=== PATIENT | female | born 1980 | race Caucasian/White ===

== ENCOUNTER 2021-09-06 13:12 | Emergency (ER) | payer BC, OTHER ==
--- OUTSIDE RECORDS SUMMARY | 2021-09-06 13:15 | XMS REPORT | Continuity of Care Document ---
:1980 Author Organization [facility] t Address [address] [place] [address] Care Team Providers Name Role Phone Pcp, Does Not Have A Primary Care Physician Nurse, Db Urgent Care Attending Clinician Unavailable Ori SHAW Attending Clinician ORI Attending Clinician Unavailable Doctor Unassigned, Name Attending Clinician Unavailable DINESH_ROBB_Phillip_Angela Attending Clinician Unavailable Gerald Fisher Attending Clinician [phone] Abigail JEAN Attending Clinician DINESH_ROBB_Phillip_Angela Admitting Clinician Unavailable Payers Payer Name Policy Type Policy Number Effective Date Expiration Date [place] [id number] 2018 00:00:00 [place] Problems This patient has no known problems. Allergies, Adverse Reactions, Alerts Allergy Allergy Status Severity Reaction(s) Onset Inactive Treating Comm ents Source Name Type Date Date Clinician No Known DA Active U [facility] 7-18 [facility] [address] [place] [address] NO KNOWN Drug Active Univers ALLERGIE Class [facility] [place] Social History Social Habit Start Date Stop Date Quantity Comments Source Exposure to 2021-08-27 2021-09-06 Not sure [facility] SARS-CoV-2 (event) 00:00:00 09:48:00 Medica l Branch Sex Assigned At [birth year] [facility] 00:00:00 00:00:00 Medical Branch Smoking Status Start Date Stop Date Source Unknown if ever smoked [facility] Medications Ordered Filled Start Stop Current Ordering Indication Dosage Frequency Signature Comments Components Source Medication Medication Date Date Medication? Clinician (SIG) Name Name Mary 2020-05- No [id number] Take 2 Mandy n 250 MG 0-01 10-07 tablets by Seyb old oral Tablet 00:00: 04:59 mouth on 00 :00 day 1 then 1 tablet by mouth daily for 4 days thereafter . Vital Signs Vital Name Observation Time Observation Value Comments Source Systolic blood 2021-09-06 14:59:00 157 mm[Hg] [facility]iver [facility] of [facility] Diastolic blood 2021-09-06 14:59:00 99 mm[facility]Hg[facility] rate 2021-09-06 14:59:00 93 /min [facility] Body temperature 2021-09-06 14:59:00 36.11 [facility] Respiratory rate 2021-09-06 14:59:00 18 /min [facility] Body height 2021-09-06 14:59:00 160 cm [facility] Body weight 2021-09-06 14:59:00 59.194 kg [facility] BMI 2021-09-06 14:59:00 23.12 kg/m2 [facility] Oxygen saturation in 2021-09-06 14:59:00 100 /min [facility] Arterial blood by [facility] Pulse oximetry [place] Procedures Procedure Date / Time Performed Performing Clinician [facility] e ASSIGNMENT OF BENEFITS 2021-09-06 14:44:15 Doctor Unassigned, No [facility] Encounters Start End Encounter Admission Attending Care Care Encounter Source Date/Time Date/Time Type Type Clinicians Facility Department ID 2021-09-06 2021-09-06 Nurse [facility] [id number] Univers 10:30:00 10:50:00 Visit [facility] [id number] itpadma sanchez [facility] [id number] Mario as ECTOR?BLEA [id number] Pr [address] MEDICAL OFFICE BUILDING 2021-09-06 2021-09-06 Outpatient [facility] [id number] Univers 10:30:00 10:30:00 [id number] ity [facility] 2021-09-06 2021-09-06 Outpatient R ORI [facility] [id number] Univers 10:30:00 10:30:00 KENISHA ity [facility] 2021-09-06 2021-09-06 Outpatient R ORI [facility] [id number] Univers 10:00:00 10:00:00 KENISHA ity [facility] 2021-09-06 2021-09-06 Letter Doctor [place] [id number] Univers 00:00:00 00:00:00 (Out) Unassigned, JD [id number] ity of [facility] [id number] Mario as [id number] [facility] 044 [place] 2021-09-06 2021-09-06 Orders Doctor [place] [id number] Univers 00:00:00 00:00:00 Only Unassigned, JD [id number] ity of [facility] [id number] Mario as [id number] [facility] 009 [place] 2021-09-06 2021-09-06 Letter Doctor [place] [id number] Univers 00:00:00 00:00:00 (Out) Unassigned, JD [id number] ity of [facility] [id number] Mario as [id number] [facility] 044 [place] 2021-06-23 2021-06-23 Outpatient GC_[facility]AOM[facility]_ PRIV PRIV [id number] [facility] 04:25:00 04:25:00 Janett [id number] Medic al 2021-06-22 2021-06-22 Outpatient GC_SWHAOM[facility]_ PRIV PRIV [id number] [facility] 10:06:00 10:06:00 Janett [id number] Medic al 2021-06-22 2021-06-22 Outpatient Phillip, PRIV PRIV [id number] 00:00:00 00:00:00 Kris [id number] Gerald [id number] 2021-06-21 2021-06-21 Outpatient GC_SWOMC_ PRIV PRIV [id number] [facility] 01:05:00 01:05:00 Janett [id number] Medic al 2021-02-11 2021-02-11 [facility] [id number] Mandy 14:32:09 14:52:34 ne Volodymyr AT [id number] Se shalom OROZCO [id number] [facility] [id number] 2019-07-04 2019-07-04 Outpatient GC_SWHAOMC_ PRIV PRIV [id number] [facility] 04:52:00 04:52:00 Janett [id number] Medic al Results Test Description Test Time Test Comments Results Result Comments Source HGB HCT 2018-11-20 07:48:00 Test Item Value Reference Range Interpretation Comme nts HEMOGLOBIN (test code = HGB) 7.9 g/dL 10.7-13.9 L HEMATOCRIT (test code = HCT) 27.2 % 32.1-42.1 L AG HEPATITIS B [id number] 14:05:00 Test Item Value Reference Range Interpretation Comments AG HEPATITIS B SURFACE (test code NONREACTIVE NONREACTIVE = HBSAG) IS CONSENT FORM SIGNED FOR HIV TESTING? YAB HEPATITIS C [id number] 14:05:00 Test Item Value Reference Range Interpretation Comments AB HEPATITIS C (test code = NONREACTIVE NONREACTIVE HCVAB) SIGNAL TO CUTOFF (test code = 0.09 <0.80 N CUTOFF) IS CONSENT FORM SIGNED FOR HIV TESTING? YAB [id number] 14:05:00 Test Item Value Reference Range Interpretation Comments AB TREPONEMA (test code = TREPAB) NONREACTIVE NONREACTIVE IS CONSENT FORM SIGNED FOR HIV TESTING? YAB HIV 1 14:05:00 Test Item Value Reference Range Interpretation Comments AB HIV 1 2 (test NONREACTIVE NONREACTIVE Done by [facility] code = [id number]) 4th Gen HIV Ag/Ab Combo Screen IS CONSENT FORM SIGNED FOR HIV TESTING? YCBC W/AUTO [id number] 04:40:00 Test Item Value Reference Range Interpretation Comments WHITE BLOOD CELL (test code = WBC) 14.8 K/mm3 6.6-12.1 H RED BLOOD CELL (test code = RBC) 3.87 M/mm3 3.45-5.01 N HEMOGLOBIN (test code = HGB) 8.9 g/dL 10.7-13.9 L HEMATOCRIT (test code = HCT) 30.1 % 32.1-42.1 L MEAN CELL VOLUME (test code = MCV) 78 fL 84.1-94.8 L MEAN CELL HGB (test code = MCH) 23.0 pg 27-35 L MEAN CELL HGB CONCETRATION (test 29.6 gm/dL 32.2-34.1 L code = MCHC) RED CELL DISTRIBUTION WIDTH (test 16.8 % 12.4-16.5 H code = RDW) PLATELET COUNT (test code = PLT) 237 K/mm3 133-385 N IMMATURE PLATELET FRACTION (test 0.0 % 0.0-10.8 N code = IPF) MEAN PLATELET VOLUME (test code = 12.4 fl 9.1-12.7 N MPV) NEUTROPHIL % (test code = NT%) 73.3 % 56.5-79.4 N LYMPHOCYTE % (test code = LY%) 16.5 % 14.3-34.3 N MONOCYTE % (test code = MO%) 7.4 % 5.1-10.4 N EOSINOPHIL % (test code = EO%) 0.5 % 0.1-3.0 N BASOPHIL % (test code = BA%) 0.5 % 0.1-1.0 N NEUTROPHIL # (test code = NT#) 10.9 K/mm3 LYMPHOCYTE # (test code = LY#) 2.5 K/mm3 MONOCYTE # (test code = MO#) 1.1 K/mm3 EOSINOPHIL # (test code = EO#) 0.08 K/mm3 BASOPHIL # (test code = BA#) 0.1 K/mm3 RBC MORPHOLOGY REQUIRED (test code NORMAL NORMAL = RBCM) PLATELET MORPHOLOGY REQUIRED (test NORMAL NORMAL code = PLTMR)
[2021-09-06] MEDS ORDERED: ONDANSETRON 4 MG/2 ML VIAL ONE (13:37)
[2021-09-06] MEDS ORDERED: MORPHINE 4 MG/ML SYR ONE (13:47)
[2021-09-06 13:49] LABS: Urine Blood Negative (Negative); Urine Glucose Negative (Negative); Urine Protein Negative (Negative); Urine pH 5.5 (5.0-7.0)
[2021-09-06 14:05] LABS: Absolute Lymphocytes (CBC) 1.9 K/uL (0.7-4.9); Hematocrit 38.2 % (36.0-45.0); Lymphocytes % 23.4 % (15.3-44.8); RBC Red Blood Cell Count 4.88 M/uL (3.86-4.86)
[2021-09-06 14:08] LABS: Urine Bacteria <20 /HPF (<20); Urine RBC <5 /HPF (NONE SEEN)
[2021-09-06 14:18] LABS: ALT/SGPT 21 U/L (12-78); AST/SGOT 23 U/L (15-37); Albumin 4.2 g/dL (3.4-5.0); Alkaline Phosphatase 58 U/L (45-117); BUN Blood Urea Nitrogen 8 mg/dL (7-18); Bicarbonate 28 mmol/L (21-32); Bilirubin Total 0.3 mg/dL (0.2-1.0); Glucose Level 109 mg/dL (74-106); Lipase 176 U/L (73-393); Potassium 3.9 mmol/L (3.5-5.1); Protein, Total 7.6 g/dL (6.4-8.2); Sodium Level 139 mmol/L (136-145)
--- NOTE | 2021-09-06 14:48 | RAD REPORT ---
EXAM DESCRIPTION: CTAbdomen Pelvis W Contrast - 09/06/2021 2:39 pm CLINICAL HISTORY: Bilateral flank pain COMPARISON: No comparisons TECHNIQUE: CT of the abdomen and pelvis was performed. All CT scans are performed using dose optimization technique as appropriate and may include automated exposure control or mA/KV adjustment according to patient size. FINDINGS: Lower chest: No acute abnormality. Liver: No acute abnormality or suspicious lesions. Biliary: No biliary ductal dilatation. Stomach: No significant focal abnormality. Duodenum: No significant focal abnormality. Pancreas: No significant abnormality. Spleen: No significant abnormality. Adrenal: No suspicious lesions. Kidney/ureter: No hydronephrosis. No renal calculi. Retroperitoneum: No retroperitoneal adenopathy. Vascular: No aneurysm. Bowel: Normal appendix.. Moderate colonic stool burden. Peritoneum: Trace pelvic free fluid which is likely physiologic. Bladder: Grossly unremarkable. Reproductive: No adnexal masses. Bones: No acute fracture. Other: n/a IMPRESSION: No acute intra-abdominal or pelvic finding. Normal appendix. No renal or ureteral calcul i identified. .
[2021-09-06] MEDS ORDERED: NA CHLORIDE 0.9% 500 ML ONE (15:27)
[2021-09-06] MEDS ORDERED: KETOROLAC 30 MG/ML INJ ONE (15:27)
[2021-09-06] MEDS ORDERED: CYCLOBENZAPRINE 10 MG TAB ONE (15:27)
[2021-09-06] MEDS ORDERED: LIDOCAINE 4% PATCH ONE (15:28)
--- NOTE | 2021-09-06 16:12 | ER ---
Nurse's Notes [facility] Name: Aisha Sexton Age: 40 yrs Sex: Female : 1980 Arrival Date: 09/06/2021 Time: 13:14 Bed 10 Private MD: Diagnosis: Low back pain;Essential (primary) hypertension Presentation: 09/06 13:22 Chief complaint: Patient states: ABD and back pain x 2 weeks and elevated BP; also vg1 states bladder fills full and has been getting up in the middle of the night. Coronavirus screen: Vaccine status: Patient reports being unvaccinated. Client denies travel out of the [place] in the last 14 days. Ebola Screen: Patient denies exposure to infectious person. Patient denies travel to an Ebola-affected area in the 21 days before illness onset. Initial Sepsis Screen: Does the patient meet any 2 criteria? No. Patient's initial sepsis screen is negative. Does the patient have a suspected source of infection? No. Patient's initial sepsis screen is negative. Risk Assessment: Do you want to hurt yourself or someone else? Patient reports no desire to harm self or others. Onset of symptoms was August 23, 2021. 13:22 Method Of Arrival: Ambulatory vg1 13:22 Acuity: BRANDAN 3 vg1 Triage Assessment: 13:26 General: Appears in no apparent distress. uncomfortable, Behavior is calm, cooperative. vg1 Pain: Complains of pain in back, right lower quadrant and left lower quadrant Pain currently is 5 out of 10 on a pain scale. Musculoskeletal: Circulation, motion, and sensation intact. POLISHER HAND: 13:26 [facility] 08/26/2021 vg1 Historical: - Allergies: 13:26 No Known Allergies; vg1 - Home Meds: 13:26 None [Active]; vg1 - PMHx: 13:26 None; vg1 - PSHx: 13:26 None; vg1 - Immunization history:: Client reports having NOT received the Covid vaccine. - Social history:: Smoking status: Patient denies any tobacco usage or history of. Screenin:50 Abuse screen: Denies threats or abuse. Denies injuries from another. Nutritional ld1 screening: No deficits noted. Tuberculosis screening: No symptoms or risk factors identified. Fall Risk None identified. Assessment: 13:50 General: Appears in no apparent distress. uncomfortable, Behavior is calm, cooperative, ld1 appropriate for age. Pain: Complains of pain in low back area Pain does not radiate. Pain currently is 9 out of 10 on a pain scale. Quality of pain is described as sharp, shooting, throbbing. Neuro: Level of Consciousness is awake, alert, obeys commands, Oriented to person, place, time, situation. Cardiovascular: Capillary refill < 3 seconds Patient's skin is warm and dry. Respiratory: Airway is patent Respiratory effort is even, unlabored. GI: Abdomen is flat, non-distended. : No signs and/or symptoms were reported regarding the genitourinary system. EENT: No signs and/or symptoms were reported regarding the EENT system. Derm: No signs and/or symptoms reported regarding the dermatologic system. Musculoskeletal: No signs and/or symptoms reported regarding the musculoskeletal system. Vital Signs: 13:22 BP 166 / 116; Pulse 85; Resp 16; Temp 98.0; Pulse Ox 100% ; Weight 58.97 kg; Height 5 vg1 ft. 3 in. (160.02 cm); Pain 5/10; 13:50 BP 159 / 102; Pulse 86; Resp 18; Pulse Ox 100% on R/A; Pain 9/10; ld1 14:58 BP 149 / 99; Pulse 86; Resp 18; Pulse Ox 100% on R/A; Pain 4/10; ld1 13:22 Body Mass Index 23.03 (58.97 kg, 160.02 cm) vg1 ED Course: 13:14 Patient arrived in ED. as 13:18 Armando Ortiz NP is PHCP. pm1 13:18 Jairo Chandra MD is Attending Physician. pm1 13:26 Triage completed. vg1 13:26 Arm band placed on. vg1 13:31 Suzanne Moss, JANETTE is Primary Nurse. ld1 13:50 Patient has correct armband on for positive identification. Bed in low position. Call ld1 light in reach. Side rails up X2. Pulse ox on. NIBP on. Door closed. Noise minimized. Warm blanket given. 13:50 No provider procedures requiring assistance completed. Inserted saline lock: 20 gauge ld1 in right antecubital area, using aseptic technique. Blood collected. 14:40 CT Abd/Pelvis - IV Contrast Only In Process Unspecified. EDMS 16:22 IV discontinued, intact, bleeding controlled, No redness/swelling at site. ld1 Administered Medications: 13:52 Drug: Zofran (Ondansetron) 4 mg Route: IVP; Site: right antecubital; ld1 15:33 Follow up: Response: No adverse reaction ld1 13:52 Drug: morphine 4 mg Route: IVP; Site: right antecubital; ld1 15:33 Follow up: Response: No adverse reaction ld1 15:32 Drug: Flexeril (cyclobenzaprine) 10 mg Route: PO; ld1 15:33 Follow up: Response: No adverse reaction ld1 15:32 Drug: Lidoderm Patch 5 % (700 mg/patch) 1 patches Route: Topical; Site: affected area; ld1 15:33 Follow up: Response: No adverse reaction ld1 15:32 Drug: Ketorolac 30 mg Route: IVP; Site: right antecubital; ld1 15:33 Follow up: Response: No adverse reaction ld1 15:32 Drug: NS 0.9% 500 ml Route: IV; Rate: bolus; Site: right antecubital; ld1 Outcome: 16:12 Discharge ordered by MD. pm1 16:22 Discharged to home ambulatory. ld1 16:22 Condition: stable 16:22 Discharge instructions given to patient, Instructed on discharge instructions, follow up and referral plans. medication usage, Demonstrated understanding of instructions, follow-up care, medications, Prescriptions given X 3. 16:23 Patient left the ED. ld1 Signatures: Dispatcher [employer] EDJanet Nina Patrick, DALIA WINDOWS CONSULTANT pm1 Jolene Mcdermott, JANETTE RN vg1 Suzanne Moss RN RN ld1
--- NOTE | 2021-09-06 16:12 | EDPHYS ---
Physician Documentation [facility] Name: Aisha Sexton Age: 40 yrs Sex: Female : 1980 Arrival Date: 09/06/2021 Time: 13:14 Bed 10 Private MD: ED Physician Jairo Chandra HPI: 09/06 13:31 This 40 yrs old Female presents to ER via Ambulatory with complaints of Back Pain, High pm1 Blood Pressure. 13:31 The patient presents with pain that is acute, with no known mechanism of injury. The pm1 symptoms are located in the low back. Onset: The symptoms/episode began/occurred 2 week(s) ago. The pain does not radiate. 13:31 Associated signs and symptoms: Pertinent negatives: abdominal pain, dysuria, fever, pm1 nausea, vomiting, diarrhea. The problem was sustained from unknown cause. Modifying factors: The patient symptoms are alleviated by heat application. Severity of symptoms: in the emergency department the symptoms are unchanged. The patient has not experienced similar symptoms in the past. The patient has been recently seen at an urgent care, just prior to arrival, for similar complaints, and was sent to the [facility] Emergency Department for further evaluation, for evaluation due to elevated blood pressure. 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 - Social history:: Smoking status: Patient denies any tobacco usage or history of. ROS: 13:31 Constitutional: Negative for fever, chills, and weight loss. pm1 13:31 Cardiovascular: Negative for chest pain, palpitations, and edema, Respiratory: Negative for shortness of breath, cough, wheezing, and pleuritic chest pain, Abdomen/GI: Negative for abdominal pain, nausea, vomiting, diarrhea, and constipation. 13:31 : Negative for injury, bleeding, discharge, and swelling, MS/Extremity: Negative for injury and deformity, Skin: Negative for injury, rash, and discoloration, Neuro: Negative for headache, weakness, numbness, tingling, and seizure. 13:31 Back: Positive for of the low back area. 13:31 All other systems are negative. Exam: 13:31 Constitutional: This is a well developed, well nourished patient who is awake, alert, pm1 and in no acute distress. Head/Face: Normocephalic, atraumatic. 13:31 Skin: Warm, dry with normal turgor. Normal color with no rashes, no lesions, and no evidence of cellulitis. MS/ Extremity: Pulses equal, no cyanosis. Neurovascular intact. Full, normal range of motion. 13:31 Cardiovascular: Exam negative for acute changes, Rate: normal, Rhythm: regular, Pulses: no pulse deficits are appreciated. 13:31 Respiratory: Exam negative for acute changes, respiratory distress, shortness of breath, Breath sounds: are clear throughout. 13:31 Abdomen/GI: Inspection: abdomen appears normal, Palpation: abdomen is soft and non-tender, in all quadrants. 13:31 Back: pain, that is mild, muscle spasm, is appreciated in the left low back and right low back. 13:31 Neuro: Exam negative for acute changes, Orientation: is normal, Mentation: is normal, Motor: is normal, moves all fours, Sensation: is normal, no obvious gross deficits, Gait: is steady, at a normal pace, without difficulty. Vital Signs: 13:22 BP 166 / 116; Pulse 85; Resp 16; Temp 98.0; Pulse Ox 100% ; Weight 58.97 kg; Height 5 vg1 ft. 3 in. (160.02 cm); Pain 5/10; 13:50 BP 159 / 102; Pulse 86; Resp 18; Pulse Ox 100% on R/A; Pain 9/10; ld1 14:58 BP 149 / 99; Pulse 86; Resp 18; Pulse Ox 100% on R/A; Pain 4/10; ld1 13:22 Body Mass Index 23.03 (58.97 kg, 160.02 cm) vg1 MDM: 13:31 Patient medically screened. pm1 16:10 Data reviewed: vital signs. Data interpreted: Pulse oximetry: on room air is 100 %. pm1 Interpretation: normal. Counseling: I had a detailed discussion with the patient and/or guardian regarding: the historical points, exam findings, and any diagnostic results supporting the discharge/admit diagnosis, lab results, radiology results, the need for outpatient follow up, to return to the emergency department if symptoms worsen or persist or if there are any questions or concerns that arise at home. 09/06 13:27 Order name: CBC with Diff; Complete Time: 14:22 pm1 09/06 13:27 Order name: CMP; Complete Time: 14:22 pm1 09/06 13:27 Order name: Lipase; Complete Time: 14:22 pm1 09/06 13:27 Order name: Urine Microscopic Only; Complete Time: 14:22 pm1 09/06 13:50 Order name: Urine Dipstick-Ancillary; Complete Time: 13:50 EDMS 09/06 13:54 Order name: Urine --Ancillary (enter results); Complete Time: 14:22 bd 09/06 13:27 Order name: CT Abd/Pelvis - IV Contrast Only; Complete Time: 14:55 pm1 09/06 14:13 Order name: Urine Culture EDMS 09/06 13:27 Order name: IV Saline Lock; Complete Time: 13:52 pm1 09/06 13:27 Order name: Labs collected and sent; Complete Time: 13:52 pm1 09/06 13:27 Order name: Urine Dipstick-Ancillary (obtain specimen); Complete Time: 13:52 pm1 09/06 13:27 Order name: Urine Test (obtain specimen); Complete Time: 13:52 pm1 Administered Medications: 13:52 Drug: Zofran (Ondansetron) 4 mg Route: IVP; Site: right antecubital; ld1 15:33 Follow up: Response: No adverse reaction ld1 13:52 Drug: morphine 4 mg Route: IVP; Site: right antecubital; ld1 15:33 Follow up: Response: No adverse reaction ld1 15:32 Drug: Flexeril (cyclobenzaprine) 10 mg Route: PO; ld1 15:33 Follow up: Response: No adverse reaction ld1 15:32 Drug: Lidoderm Patch 5 % (700 mg/patch) 1 patches Route: Topical; Site: affected area; ld1 15:33 Follow up: Response: No adverse reaction ld1 15:32 Drug: Ketorolac 30 mg Route: IVP; Site: right antecubital; ld1 15:33 Follow up: Response: No adverse reaction ld1 15:32 Drug: NS 0.9% 500 ml Route: IV; Rate: bolus; Site: right antecubital; ld1 Disposition: 18:26 Co-signature as Attending Physician, Jairo Chandra MD. rn Disposition Summary: 09/06/21 16:12 Discharge Ordered Location: Home pm1 Problem: new pm1 Symptoms: have improved pm1 Condition: Stable pm1 Diagnosis - Low back pain pm1 - Essential (primary) hypertension pm1 Followup: pm1 - With: Emergency Department - When: As needed - Reason: Worsening of condition Followup: pm1 - With: Private Physician - When: 2 - 3 days - Reason: Recheck today's complaints, Continuance of care, Re-evaluation by your physician Discharge Instructions: - Discharge Summary Sheet pm1 - Acute Back Pain, Adult pm1 - Muscle Strain pm1 - Hypertension, Adult pm1 - How to Take Your Blood Pressure, [id number] pm1 - DASH Eating Plan pm1 - Managing Your Hypertension pm1 Forms: - Medication Reconciliation Form pm1 - Thank You Letter pm1 - Antibiotic Education pm1 - Prescription Opioid Use pm1 Prescriptions: - Lidoderm 5 % Topical adhesive patch,medicated - apply 1 patch by TRANSDERMAL route once daily As needed 12 hours on and 12 off pm1 in a 24 hour period; 10 patch; Refills: 0, Product Selection Permitted - Cyclobenzaprine 10 mg Oral Tablet - take 1 tablet by ORAL route every 8 hours As needed; 30 tablet; Refills: 0, pm1 Product Selection Permitted - Diclofenac Sodium 75 mg Oral Tablet Sustained Release - take 1 tablet by ORAL route 2 times per day; 30 tablet; Refills: 0, Product pm1 Selection Permitted Signatures: Dispatcher [employer] EDJairo Mahoney MD MD rn Marinas, Patrick, NP PAINT MAKER pm1 Jolene Mcdermott RN RN vg1 Suzanne Moss RN RN ld1
[2021-09-06 18:05] VITALS: TEMP 98; O2SAT 100
[2021-09-06 18:08] VITALS: BP 149/99
== END 2021-09-06 16:23 | disposition home or self-care (01) ==
LOC: ER 13:12
DX: M54.50 Low back pain, unspecified (principal); I10 Essential (primary) hypertension
CPT/HCPCS: 87088; 85025; 87086; 36415; 81025; 83690; 80053; 74177; Q9967; J7040; J2405; 81003; 81015; 96374; 96375; 99284